=== PATIENT | male | born 1965 | race Caucasian/White ===

== ENCOUNTER 2018-03-02 11:19 | Emergency (ER) | payer OTHER ==
[~2018-03-02] VITALS: Ht 175.3 cm; Wt 59.0 kg
--- NOTE | ~2018-03-02 | EKG ---
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 03/02/18 1710 1139 1139 Thomas Arango MD, FACC /EPI
[2018-03-02 11:56] LABS: ABSOLUTE NEUTROPHILS 4.2 thou/uL (1.4-8.2); BASOPHILS 0.9 % (0.0-2.0); HEMATOCRIT 45.9 % (42.0-52.0); HEMOGLOBIN 16.3 gm/dL (14.0-18.0); RDW 13.3 % (10.5-14.5)
[2018-03-02 11:59] LABS: EOSINOPHILS 1.1 % (0.0-3.0); LYMPHOCYTES 28.2 % (24.0-44.0); MCH 31.6 pg (26.0-34.0); MCHC 35.4 g/dL (28.0-37.0); MCV 89.3 fL (80.0-100.0); PLATELET COUNT 213 thou/uL (150-400); POLYS 61.8 % (36.0-66.0); RBC 5.14 mil/uL (4.50-6.00); WBC 6.8 thou/uL (4.0-11.0)
[2018-03-02 12:07] LABS: ANION GAP 5 mmol/L (7-16); BUN 9 mg/dL (7-18); CALCIUM 9.1 mg/dL (8.5-10.1); CHLORIDE 102 mmol/L (98-107); CO2 29 mmol/L (21-32); GLUCOSE 187 mg/dL (74-106); POTASSIUM 3.9 mmol/L (3.5-5.1); SODIUM 136 mmol/L (136-145)
[2018-03-02 12:15] LABS: TROPONIN-I <0.06 ng/mL (<0.06)
[2018-03-02] MEDS ORDERED: FLEXERIL PO (12:32)
[2018-03-02] MEDS ORDERED: NORCO 5-325 TA1 EACH PO (12:32)
[2018-03-02 12:50] VITALS: BP 197/102
== END 2018-03-02 12:51 | disposition home or self-care (01) ==
LOC: ER 11:19
PROVIDERS: Physician Assistant
DX: M25.511 Pain in right shoulder (principal); F17.210 Nicotine dependence, cigarettes, uncomplicated; I10 Essential (primary) hypertension; E10.9 Type 1 diabetes mellitus without complications; Z91.030 Bee allergy status

== ENCOUNTER 2019-06-22 15:47 | Inpatient (IN) | payer OTHER ==
[~2019-06-22] VITALS: Ht 175.3 cm; Wt 60.7 kg
[2019-06-22 15:47] VITALS: BP 216/94
[~2019-06-22 15:47] MED LIST: FLEXERIL PO; NORCO 5-325 TA1 EACH PO
[2019-06-22] MEDS ORDERED: FIASP 100100 UNIT/1 (16:07)
[2019-06-22 16:11] LABS: ABSOLUTE NEUTROPHILS 3.8 thou/uL (1.4-8.2); BASOPHILS 1.2 % (0.0-2.0); EOSINOPHILS 1.2 % (0.0-3.0); HEMATOCRIT 44.8 % (42.0-52.0); HEMOGLOBIN 14.9 gm/dL (14.0-18.0); LYMPHOCYTES 31.5 % (24.0-44.0); MCH 30.8 pg (26.0-34.0); MCHC 33.2 g/dL (28.0-37.0); MCV 92.6 fL (80.0-100.0); MONOCYTES 9.2 % (1.0-8.0); PLATELET COUNT 239 thou/uL (150-400); POLYS 56.9 % (36.0-66.0); RBC 4.83 mil/uL (4.50-6.00); RDW 13.4 % (10.5-14.5); WBC 6.7 thou/uL (4.0-11.0)
[2019-06-22 16:17] LABS: ANION GAP 8 mmol/L (7-16); BUN 8 mg/dL (7-18); CALCIUM 9.5 mg/dL (8.5-10.1); CHLORIDE 101 mmol/L (98-107); CO2 27 mmol/L (21-32); CREATININE 0.8 mg/dL (0.7-1.3); GLUCOSE 192 mg/dL (74-106); POTASSIUM 4.1 mmol/L (3.5-5.1); SODIUM 136 mmol/L (136-145)
[2019-06-22 16:26] LABS: ALBUMIN 4.1 g/dL (3.4-5.0); SGOT 12 U/L (15-37); SGPT 14 U/L (30-65); TOTAL BILIRUBIN 0.7 mg/dL (<0.1-1.0); TROPONIN-I <0.06 ng/mL (<0.06)
[2019-06-22 16:31] LABS: APTT 26.3 Seconds (24.5-32.8)
[2019-06-22 17:38] VITALS: BP 186/88
[2019-06-22 18:39] VITALS: BP 200/89
[2019-06-22 19:17] VITALS: BP 227/113
--- NOTE | 2019-06-22 19:37 | NUR ---
RECEIVED ER REPORT AT APPROXIMATELY 1630. PT ON UNIT AT APPROXIMATELY 1900. PT COMFORTABLE IN BED. NO DISTRESS NOTED. VITAL SIGNS IN FLOW SHEET. GIVING REPORT TO NIGHTSHIFT RN. TELE ON PT.
[2019-06-22] MEDS ORDERED: LEVEMIR100 UNIT/1 SUBQ (21:38)
[2019-06-22 22:07] LABS: CHOLESTEROL 164 mg/dL (<200); HDL CHOLESTEROL 32 mg/dL (>40); LDL CHOLESTEROL 95 mg/dL (<100); TC:HDL 5.1 Ratio (Not establshd); TRIGLYCERIDE 186 mg/dL (<150); VLDL 37 mg/dL (<40)
[2019-06-22 22:11] LABS: SERUM ASSESSMENT Slight Lipemia
[2019-06-22 23:43] VITALS: BP 164/86
--- NOTE | 2019-06-23 04:08 | NUR ---
SHIFT NOTE: PATIENT ALERT AND ORIENTED AND ABLE TO COMMUNICATE NEEDS.DENIES PAIN OR DISCOMFORT.STROKE ASSESSMENT IN PROGRESS WITH NO ACUTE CHANGES.RESTING WITH NO ACUTE DISTRESS. TREATMENT INITIATED PER THE ORDER. SCHEDULED FOR MRI TO DAY AND AWARE. NO OTHER CONCERN OR COMPLAINT. HOURLY ROUNDING. CALL LIGHT AND PERSONAL ITEMS WITHIN REACH.WILL CONTINUE WITH CURRENT POC AND TO MONITOR.
[2019-06-23 04:15] VITALS: BP 172/87
[2019-06-23 06:01] LABS: CALCIUM 9.2 mg/dL (8.5-10.1); CREATININE 0.8 mg/dL (0.7-1.3); POTASSIUM 3.5 mmol/L (3.5-5.1)
[2019-06-23 08:38] VITALS: BP 255/90
[2019-06-23 10:25] LABS: URINE BILIRUBIN NEGATIVE (Negative); URINE BLOOD NEGATIVE (Negative); URINE CLARITY CLEAR; URINE COLOR YELLOW; URINE GLUCOSE-RANDOM* TRACE (Negative); URINE KETONES NEGATIVE (Negative); URINE LEUKOCYTES-REFLEX NEGATIVE (Negative); URINE NITRITE-REFLEX NEGATIVE (Negative); URINE PROTEIN (DIPSTICK) NEGATIVE (Negative); URINE SPECIFIC GRAVITY 1.015 (1.005-1.035); URINE UROBILINOGEN 0.2 E.U./dl (0.2-1.0)
[2019-06-23 10:35] LABS: AMP/METHAMP Negative (Negative); BARBITURATES Negative (Negative); BENZODIAZEPINES Negative (Negative); COCAINE Negative (Negative); METHADONE Negative (Negative); OPIATES Negative (Negative); PCP Negative (Negative)
[2019-06-23 11:09] VITALS: BP 195/73
[2019-06-23 14:14] VITALS: BP 165/70
--- NOTE | 2019-06-23 15:51 | NUR ---
met with patient who admits with CVA. 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 Therapy evals initiated PT/OT s/o. Patient evaled by [facility] acute rehab and does not meet criteria. Plan home and outpatient therapy. Patient has health insurance. casemgt following.
[2019-06-23 16:20] VITALS: BP 152/70
--- NOTE | 2019-06-23 18:26 | NUR ---
ASSUMMED PT CARE AT APPROXIMATELY 0700. PT A&O X4. ASSESSMENT CHARTED. FALL PRECAUTIONS IN PLACE. PT DENIES HAVING CHEST PAIN. PT DENIES HAVING SOB. PT DENIES HAVING ACUTE PAIN. PT BP ELEVATED IN AM. DR NOTIFIED. ORDERED NEW BP MEDICATIONS. BP MEDICATIONS GIVEN. BP STABLE. VITAL SIGNS STABLE. PT'S BLOOD SUGAR LOW IN AM. HYPOGLYCEMIC PROTOCOL FOLLOWED. RECHECKED PT'S BLOOD SUGAR. BLOOD SUGARS STABLE. PT AND PT FAMILY EDUCATED ABOUT POC. PT AND PT'S FAMILY STATED UNDERSTANDING AND DENIED HAVING FURTHER QUESTIONS. PT UP AD CINTHYA. PT STEADY/INDEPENDENT WHEN AMBULATING. PT COMFORTABLE IN BED. PT DENIES HAVING FURTHER CONCERNS.
[2019-06-23 19:24] VITALS: BP 150/82
[2019-06-24 00:07] LABS: GLYCOHEMOGLOBIN (HGB A1C) 9.2 % (4.8-5.6)
--- NOTE | 2019-06-24 04:41 | NUR ---
SHIFT NOTE: PATIENT RESTING WITH NO ACUTE DISTRESS. VITAL SIGN AND OTHER SHIFT [facility]NOTED WITH LOW BLOOD SUGAR 2HOURS AFTER THE TREATMENT WITH BEDTIME INSULIN ORDER.LOW BLOOD SUGAR TREATMENT PER THE ORDER WITH EFFECT. SPECIAL DIET COOK FLAMER AFTER LASTING HEIDI NOTIFIED WITH NO NEW ORDER. NO OTHER CONCERN OR COMPLAINT. HOURLY ROUNDING. CALL LIGHT AND PERSONAL ITEMS WITHIN REACH. WILL CONTINUE WITH CURRENT PLAN OF CARE AND TO MONITOR.
[2019-06-24 05:17] VITALS: BP 137/74
[2019-06-24 07:38] VITALS: BP 150/79
[2019-06-24 11:25] VITALS: BP 142/72
[2019-06-24] MEDS ORDERED: NORVASC10 MG PO (12:03)
[2019-06-24] MEDS ORDERED: LIPITOR 20 MG T20 M1 PO (12:03)
[2019-06-24] MEDS ORDERED: PRINIVIL20 MG PO (12:04)
[2019-06-24] MEDS ORDERED: ASA5UEC PO (12:05)
--- NOTE | 2019-06-24 12:15 | EKG ---
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1965 Requested By: Dario Stokes Order Number: [id number] MD: Saud Lao Measurements Intervals [place] Rate: 66 P: 73 DE: 135 QRS: -40 QRSD: 92 T: 44 QT: 409 QTc: 429 Interpretive Statements Sinus rhythm Left atrial enlargement Left ventricular hypertrophy Inferior infarct, old Compared to ECG 03/02/2018 11:39:10 Atrial abnormality now present Myocardial infarct finding still present Electronically Signed On 06-24-2019 12:14:57 MANAGER OF APPLICATIONS DEVELOPMENT by Saud Lao [email or web address] <ELECTRONICALLY SIGNED> By: Saud Lao MD 06/24/19 1214 1600 99 Saud Lao MD /[place]
--- NOTE | 2019-06-24 12:20 | NUR ---
DR. EDUARDO CALLED, ASKED THIS RN TO ORDER A BUBBLE STUDY ECHO. CALLED BACK BECAUSE DR. OSORIO HAS DISCHARGED PT AND STATES HE CAN HAVE IT DONE AN OUTPATIENT.
[2019-06-24 13:10] VITALS: BP 142/72
[2019-06-24 13:20] VITALS: BP 142/72
[2019-06-24 13:21] VITALS: BP 142/72
--- NOTE | 2019-06-24 13:54 | NUR ---
PT INTRUCTED TO TAKE NICOTINE PATCH OFF IF USING NICOTINE PRODUCTS. PT VERBALIZED UNDERSTANDING.
--- NOTE | 2019-06-24 14:25 | NUR ---
Pt dcing home today. Order for outpt echo faxed to registration and pt given the number to f/u to confirm an appt for early next week. Outpt therapy recommended as well and script provided to the pt. He has a [facility] center near his home and may want to do it there. No other cm interventions indicated.
== END 2019-06-24 15:14 | disposition home or self-care (01) | DRG 66 ==
LOC: ER 15:47 → EROBS 17:16 → 2N 17:16 → ENTRNSPT 06-24 14:38 → EDTRNSPTSTS 06-24 14:39 → 2N 06-24 15:14
PROVIDERS: Emergency Medicine; Nurse Practitioner Family; ADMIT Hospitalist
DX: I63.81 Other cerebral infarction due to occlusion or stenosis of small artery (principal); E10.9 Type 1 diabetes mellitus without complications; I10 Essential (primary) hypertension; F17.210 Nicotine dependence, cigarettes, uncomplicated; Z82.3 Family history of stroke; Z91.030 Bee allergy status; Z82.49 Family history of ischemic heart disease and other diseases of the circulatory system; Z83.3 Family history of diabetes mellitus; Z80.9 Family history of malignant neoplasm, unspecified; Z71.6 Tobacco abuse counseling
CPT/HCPCS: 10081

== ENCOUNTER → 2019-06-28 | Outpatient (CLI) | payer OTHER ==
[~2019-06-28] MED LIST changes: +ASA5UEC PO; +FIASP 100100 UNIT/1; +LEVEMIR100 UNIT/1 SUBQ; +LIPITOR 20 MG T20 M1 PO; +NORVASC10 MG PO; +PRINIVIL20 MG PO
--- NOTE | 2019-06-28 10:15 | 2DMMODE ---
[facility] [place] [place] [address] 2 D/M-MODE ECHOCARDIOGRAM Name: CECI BROCK [facility] [id number] Admission: 06/28/19 Attend Phys: Cricket Washington, Discharge: Date of : 67 Report #: [id number] THIS REPORT FOR: //name// APPROVED REPORT Study performed: 06/28/2019 09:21:22 EXAM: Comprehensive 2D, Doppler, and color-flow Echocardiogram Patient Location: Out-Patient Room #: Echo lab 2 Status: routine BSA: 1.72 HR: 71 bpm BP: 180/94 mmHg Rhythm: NSR Other Information Study Quality: Good Indications CVA/TIA Diabetes Hypertension/HDD Echo Enhancing Agent Indication: Rule out Shunt Agent(s) / Amount(s) Used: Agitated Saline 7 cc 2D Dimensions RVDd: 33.76 mm IVSd: 11.08 (7-11mm) LVOT Diam: 21.37 (18-24mm) LVDd: 52.31 mm PWd: 9.57 (7-11mm) Ascending Ao: 33.63 (22-36mm) LVDs: 39.03 (25-40mm) Aortic Root: 32.07 mm IVC: 19.00 mm Volumes Left Atrial Volume (Systole) Single Plane 4CH: 26.27 mL Single Plane 2CH: 37.82 mL LA ESV Index: 21.00 mL/m2 Aortic Valve AoV Peak Hair.: 1.53 m/s AO Peak Gr.: 9.31 mmHg LVOT Max P.93 mmHg LVOT Max V: 0.99 m/s [facility] [address] [address] 2 D/M-MODE ECHOCARDIOGRAM Name: CECI BROCK Room #: [facility] James#: [id number] Admission: 06/28/19 Attend Phys: Cricket Washington, Discharge: Date of : 67 Report #: [id number] ALICIA Vmax: 2.33 cm2 Mitral Valve E/A Ratio: 1.2 MV Decel. Time: 217.03 ms MV E Max Hair.: 1.19 m/s MV A Hair.: 0.96 m/s MV PHT: 62.94 ms IVRT: 78.43 ms Pulmonary Valve PV Peak Hair.: 0.97 m/s PV Peak Gr.: 3.81 mmHg Pulmonary Vein P Vein S: 0.73 m/s P Vein A: 0.30 m/s P Vein D: 0.55 m/s P Vein A Dur.: 83.0 msec P Vein S/D Ratio: 1.33 Left Ventricle The left ventricle is normal size. There is normal LV segmental wall motion. There is normal left ventricular wall thickness. Left ventricular systolic function is normal. The left ventricular ejection fraction is within the normal range. LVEF is 55%. The left ventricular diastolic function is normal. Right Ventricle The right ventricle is normal size. The right ventricular systolic function is normal. Atria The left atrium size is normal. Interatrial septum is intact without evidence of ASD or PFO. The right atrium size is normal. Aortic Valve The aortic valve is normal in structure. No aortic regurgitation is present. There is no aortic valvular stenosis. Mitral Valve The mitral valve is normal in structure. Trace mitral regurgitation. No evidence of mitral valve stenosis. Tricuspid Valve The tricuspid valve is normal in structure. There is no tricuspid valve regurgitation noted. Pulmonic Valve [facility] [address] [place] [address] 2 D/M-MODE ECHOCARDIOGRAM Name: CECI BROCK Lino Room #: [facility].#: [id number] Admission: 06/28/19 Attend Phys: Cricket Washington, Discharge: Date of : 67 Report #: [id number] The pulmonary valve is normal in structure. There is no pulmonic valvular regurgitation. Great Vessels The aortic root is normal in size. IVC is normal in size and collapses >50% with inspiration. Pericardium There is no pericardial effusion. <Conclusion> The left ventricle is normal size. LVEF is 55%. The left ventricular diastolic function is normal. The right ventricle is normal size. The left atrium size is normal. The aortic valve is normal in structure. Trace mitral regurgitation. There is no tricuspid valve regurgitation noted. The aortic root is normal in size. There is no pericardial effusion. <ELECTRONICALLY SIGNED> By: Les Galvan MD, FACC 06/28/19 1015 1015 1015 Les Galvan MD, FACC /INF
== END ==
LOC: CV 08:59
DX: I10 Essential (primary) hypertension (principal); E11.9 Type 2 diabetes mellitus without complications